=== PATIENT | female | born 1965 | race Caucasian/White ===

== ENCOUNTER → 2017-03-22 | Outpatient (CLI) | payer BC, OTHER ==
[~2017-03-22] MED LIST: ACET-1600 PO; No meds per pt.; [UNRECOGNIZED DRUG - CODE] PO
[2017-03-22 11:57] LABS: ASPARTATE AMINO TRANSFERASE 15 U/L (15-37); BLOOD UREA NITROGEN 8 mg/dL (7-18)
== END | disposition home or self-care (01) ==
LOC: STAR 10:59 → MERGE 11:00
PROVIDERS: ATTEND Surgery
DX: Z01.818 Encounter for other preprocedural examination (principal)
CPT/HCPCS: 36415; 80053; 85025; 93005

== ENCOUNTER → 2017-12-25 | Outpatient (CLI) | payer OTHER ==
[~2017-12-25] MED LIST changes: +DIPH-600 PO; -[UNRECOGNIZED DRUG - CODE] PO
== END | disposition home or self-care (01) ==
LOC: CFH 07:03
PROVIDERS: ATTEND Nurse Practitioner
DX: Z12.31 Encounter for screening mammogram for malignant neoplasm of breast (principal)
CPT/HCPCS: 77067

== ENCOUNTER 2019-01-17 13:02 | Day surgery (SDC) | payer OTHER ==
[~2019-01-17] VITALS: Ht 165.1 cm; Wt 80.5 kg
[~2019-01-17 13:02] MED LIST changes: +LUTE20TA PO; +MULT-642 PO; +PRED20TA PO; +UBIQ100C3 PO
[2019-01-17] MEDS ORDERED: LACTATED RINGERS 1,000 ML IV SCH (13:29)
[2019-01-17 13:32] VITALS: BP 134/78
[2019-01-17] MEDS ORDERED: BUPIVACAINE/PF-EPI 0.5% 1:200K ONE (14:12)
[2019-01-17] MEDS ORDERED: PROPOFOL 10 MG/ML, 20ML ONE (14:47)
[2019-01-17] MEDS ORDERED: MIDAZOLAM 1 MG/ML, 2ML ONE (14:56)
[2019-01-17] MEDS ORDERED: CEFAZOLIN 1,000 MG ONE (15:11)
[2019-01-17] MEDS ORDERED: FENTANYL PF 100 MCG/2ML ONE (15:11)
[2019-01-17] MEDS ORDERED: SUCCINYLCHOLINE 20 MG/ML, 10ML ONE (15:11)
[2019-01-17] MEDS ORDERED: HYDROcodone/APAP 7.5-325MG/15ML UDC PO PRN (15:30)
[2019-01-17] MEDS ORDERED: MORPHINE SULFATE 4 MG/ML, 1ML IVPush PRN (15:30)
[2019-01-17] MEDS ORDERED: OXYcodone 5 MG/5 ML ORAL.SOL UDC PO PRN (15:30)
[2019-01-17] MEDS ORDERED: FENTANYL PF 100 MCG/2ML IV PRN (15:30)
[2019-01-17] MEDS ORDERED: ACETAMINOPHEN 325 MG TABLET PO PRN (15:30)
[2019-01-17] MEDS ORDERED: MEPERIDINE/PF 25MG/0.5ML IVPush PRN (15:30)
[2019-01-17] MEDS ORDERED: HYDROmorphone 2 MG/ML, 1ML IVPush PRN (15:30)
[2019-01-17] MEDS ORDERED: OXYcodone 5 MG/5 ML ORAL.SOL UDC ONE (15:47)
== END 2019-01-17 17:15 | disposition home or self-care (01) ==
LOC: OUT 13:02
PROVIDERS: ATTEND Surgery
DX: C43.71 Malignant melanoma of right lower limb, including hip (principal); C77.4 Secondary and unspecified malignant neoplasm of inguinal and lower limb lymph nodes; Z90.710 Acquired absence of both cervix and uterus; Z98.890 Other specified postprocedural states; Z72.89 Other problems related to lifestyle; Z87.891 Personal history of nicotine dependence
CPT/HCPCS: 38500; 88305; 93005; J0330; J0690; J2250; J2704; J3010; J7120